=== PATIENT | male | born 1975 | race Caucasian/White ===

== ENCOUNTER → 2017-04-28 | Outpatient (CLI) | payer BC ==
[~2017-04-28] MED LIST: AMLODIPINE BESYL5 MG PO; FA-80.8 M1 PO; METOPROLOL/HCTZ PO; TEKTURNA HCT 31 EAC1 PO; TEKTURNA HCT 31 EACH PO
--- NOTE | ~2017-04-28 | EKG ---
PATIENT: FRANCISCO JAVIER ANNA UNIT #: [id number] Ventricular Rate: 76 BPM Atrial Rate: 76 BPM P-R Interval: 134 ms QRS Duration: 92 ms Q-T Interval: 388 ms QTC Calculation(Bezet): 436 ms P Rosalie: 37 degrees Calculated R Rosalie: 33 degrees Calculated T Rosalie: 26 degrees Diagnosis Line: Normal sinus rhythm Diagnosis Line: Normal ECG Diagnosis Line: No previous ECGs available Diagnosis Line: Confirmed by PAYAM KHALIL MD ([id number]) on Diagnosis Line: 04/29/2017 7:30:27 AM INTERPRETING MD: REMI DOMINGUEZ
[2017-04-28 09:24] LABS: HEMATOCRIT 42.6 % (38.0-50.0); HEMOGLOBIN 13.6 gm/dL (13.0-16.0); MEAN CELL VOLUME 80.8 FL (83-96); MEAN CORPUSCULAR HEMOGLOBIN 25.7 PG (28-34); MEAN CORPUSCULAR HGB CONC 31.8 g/dL (30-36); MEAN PLATELET VOLUME 7.8 FL (6.5-11.5); RED BLOOD COUNT 5.27 X10e (3.90-5.60); RED CELL DISTRIBUTION WIDTH 16.3 % (11.0-15.5); WHITE BLOOD COUNT 11.8 X10e3 (4.0-10.5)
== END | disposition home or self-care (01) ==
LOC: CAMB 07:51
PROVIDERS: Surgery
DX: Z01.818 Encounter for other preprocedural examination (principal)
CPT/HCPCS: 36415; 85027; 93005

== ENCOUNTER → 2017-05-13 | Day surgery (SDC) | payer BC ==
--- NOTE | ~2017-05-13 | OR ---
Unit #: [id number] #: [id number] Patient: FRANCISCO JAVIER ANNA [id number] [facility]. [address] [place], [place] [address] [id number] O MR#: [id number] NAME: FRANCISCO JAVIER ANNA ROOM: Date of Procedure: 05/13/2017 Admission Date: 05/13/2017 Surgeon: Jamey Sargent Jr., M.D. : 1975 Attending Physician: Jamey Sargent Jr., M.D. Primary Care Physician: Mica Alexandra Aprn OPERATIVE REPORT INDICATIONS FOR PROCEDURE The patient is a 41-year-old obese white male, who recently presented to the office complaining of a large mass of the left upper posterior thigh area. This has been recently noticed over the last six months. It seems to be increasing in size. He has had some slight discomfort related to it and it was felt the size of the same being approximately 12 to 14 cm and it should be removed under general anesthesia. The patient was brought at this time for this procedure at his request. He understands the procedure including the risks, including that of infection, recurrence, poor healing, and consents. PREOPERATIVE DIAGNOSIS Large 10 to 12 cm lipomatous mass of the left posterior medial thigh. POSTOPERATIVE DIAGNOSIS Large 10 to 12 cm lipomatous mass of the left posterior medial thigh. ANESTHESIA General with LMA and 0.5% Marcaine with epinephrine locally. PROCEDURE PERFORMED Excision of large lipomatous mass, left posterior medial thigh. DESCRIPTION OF PROCEDURE The patient was positioned in right lateral decubitus position and after being given general anesthesia with LMA, his left leg was supported on a candy-cane stirrup, and he was prepped and draped in routine fashion for removal of this large mass. An oblique incision was made approximately 5 inches in length. This was carried down through subcutaneous tissue, where there was a large lipomatous mass, which was somewhat encapsulated present. This was freed of the surrounding tissue with a #10 blade scalpel as well as the Bovie cautery and after it was completely freed up, it was removed, sent to Pathology. Hemostasis was achieved with Bovie cautery. A 10-mm Jaron-Watkins drain was placed into the base of the wound and brought out through the lateral portion of the wound. The subcutaneous tissue was approximated with interrupted 3-0 Vicryl sutures, and skin edges were approximated with stainless-steel skin clips with skin stapling device. Sterile dressings were applied externally. Estimated blood loss less than 50 mL. The patient received less than 1000 mL of crystalloid solution during the procedure. Sponges and instrument counts were correct x3. There was one 10-mm Jaron-Watkins drain used in the deeper aspect of the wound as noted above with no complications. The Unit #: [id number] #: [id number] Patient: FRANCISCO JAVIER ANNA patient was taken to the recovery room with stable vital signs in satisfactory condition. Dictated by... Jamey Sargent Jr., M.D. JMB/chapis TD: 05/13/2017 11:46 JOB #: [id number] CC: Mica Alexandra, Nurse Practitioner OPERATIVE REPORT Page 1 of 1 X Jamey Sargent MD X PROCEDURE OPERATIVE NOTE
[2017-05-13 09:11] LABS: BUN/CREATININE RATIO 17.5; CALCIUM SERUM 8.6 mg/dL (8.4-10.2); CREATININE SERUM 0.8 mg/dL (0.6-1.4); GLOM FILT RATE Estimated 111.8 mL/min (>60); POTASSIUM 3.8 mmol/L (3.5-5.1)
== END | disposition home or self-care (01) ==
LOC: CSUR 05-06 09:00
PROVIDERS: Surgery
DX: E65 Localized adiposity (principal); I10 Essential (primary) hypertension; E66.01 Morbid (severe) obesity due to excess calories; G47.33 Obstructive sleep apnea (adult) (pediatric); Z68.42 Body mass index [BMI] 45.0-49.9, adult; Z87.442 Personal history of urinary calculi; Z88.8 Allergy status to other drugs, medicaments and biological substances; Z79.899 Other long term (current) drug therapy; Z98.818 Other dental procedure status; Z98.890 Other specified postprocedural states
CPT/HCPCS: 80048; 88304; J2250; J2405; J3010